=== PATIENT | female | born 2000 | race Caucasian/White ===

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

== ENCOUNTER 2022-09-21 20:30 | Emergency (ER) | payer SELFPAY ==
[~2022-09-21] VITALS: Ht 162.6 cm; Wt 127.0 kg
[2022-09-21 21:17] VITALS: BP 110/69
--- NOTE | 2022-09-21 21:23 | NUR ---
TO LOBBY FOLLOWING TRIAGE
--- NOTE | 2022-09-21 22:31 | NUR ---
PT W/C ASSISTED TO BED #4 FROM RADIOLOGY
[2022-09-21] MEDS ORDERED: ACETAMIN/CODEINE 120/12MG-5ML 5 ML UDC PO ONE (22:40)
[2022-09-21] MEDS ORDERED: predniSONE 20 MG TAB PO ONE (23:15)
[2022-09-22] MEDS ORDERED: PRED20TA5 PO (00:39)
[2022-09-22] MEDS ORDERED: ROBAC PO (00:39)
[2022-09-22 00:59] VITALS: BP 110/69
--- NOTE | 2022-09-22 01:00 | NUR ---
Patient discharged with v/s stable. Written and verbal after care instructions given and explained. Patient alert, oriented and verbalized understanding of instructions. Ambulatory with steady gait. All questions addressed prior to discharge. ID band removed. Patient advised to follow up with PMD. Rx of prednison and guaifenesi given. Patient educated on indication of medication including possible reaction and side effects. Opportunity to ask questions provided and answered.
== END 2022-09-22 01:00 | disposition home or self-care (01) ==
LOC: MED 20:30
DX: J20.9 Acute bronchitis, unspecified (principal); Z79.899 Other long term (current) drug therapy
CPT/HCPCS: 71045; 99283; J7512

== ENCOUNTER 2023-03-05 13:08 | Emergency (ER) | payer OTHER ==
[~2023-03-05] VITALS: Ht 162.6 cm; Wt 127.0 kg
[~2023-03-05 13:08] MED LIST: PRED20TA5 PO; ROBAC PO
[2023-03-05 13:12] VITALS: BP 94/68; PULSE 129; RESP 18; TEMP 98.4; O2SAT 97
[2023-03-05] MEDS ORDERED: KETOROLAC 30 MG/ML VIAL IM ONE (13:45)
[2023-03-05 15:34] LABS: FLU A ANTIGEN negative (NEGATIVE); FLU B ANTIGEN NEGATIVE (NEGATIVE)
[2023-03-05] MEDS ORDERED: IBUP-2809 PO (15:41)
[2023-03-05] MEDS ORDERED: ACET-10509 PO (15:41)
[2023-03-05 16:59] VITALS: BP 111/68; PULSE 89; RESP 18; TEMP 98.4; O2SAT 99
== END 2023-03-05 16:59 | disposition home or self-care (01) ==
LOC: MED 13:08
DX: B34.9 Viral infection, unspecified (principal); Z20.822 Contact with and (suspected) exposure to COVID-19; Z79.899 Other long term (current) drug therapy; Z79.1 Long term (current) use of non-steroidal anti-inflammatories (NSAID)
CPT/HCPCS: 36415; 71045; 81025; 85379; 87426; 87804; 93005; 96372; 99285; J1885

== ENCOUNTER 2023-07-07 05:55 | Emergency (ER) | payer OTHER ==
[~2023-07-07] VITALS: Ht 160 cm; Wt 140.2 kg
[~2023-07-07 05:55] MED LIST changes: +ACET-10509 PO; +IBUP-2809 PO
[2023-07-07 06:02] VITALS: BP 143/96; PULSE 124; RESP 25; TEMP 98.8; O2SAT 95
[2023-07-07 06:59] VITALS: PULSE 117; RESP 20; O2SAT 95
[2023-07-07] MEDS: ALBUTEROL SULFATE/IPRATROPIU 3 ML SOL IH ONE (06:59)
[2023-07-07] MEDS ORDERED: ALBU0.0912 IH (07:16)
[2023-07-07] MEDS ORDERED: PRED20TA5 PO (07:16)
[2023-07-07] MEDS ORDERED: BROM118S70 PO (07:16)
[2023-07-07 07:45] LABS: FLU A ANTIGEN negative (NEGATIVE); FLU B ANTIGEN negative (NEGATIVE)
[2023-07-07 08:05] VITALS: BP 118/73; PULSE 101; RESP 21; TEMP 98.9; O2SAT 95
== END 2023-07-07 08:05 | disposition home or self-care (01) ==
LOC: MED 05:55
DX: J06.9 Acute upper respiratory infection, unspecified (principal); Z20.822 Contact with and (suspected) exposure to COVID-19; Z79.899 Other long term (current) drug therapy
CPT/HCPCS: 71045; 87426; 87804; 94640; 99284; Q0092

== ENCOUNTER 2024-01-14 18:18 | Emergency (ER) | payer OTHER ==
[~2024-01-14] VITALS: Ht 162.6 cm; Wt 139.5 kg
[~2024-01-14 18:18] MED LIST changes: -ACET-10509 PO; +ACET500T99 PO; +ALBU0.0912 IH; +BROM118S70 PO
[2024-01-14 18:25] VITALS: BP 128/63; PULSE 130; RESP 18; TEMP 97.7; O2SAT 98
[2024-01-14 18:57] VITALS: PULSE 117; RESP 22; O2SAT 98
[2024-01-14] MEDS: NACL 0.9% 1,000 ML IV ONE (18:58)
[2024-01-14] MEDS: LEVALBUTEROL 1.25 MG/0.5 ML NEBU INH ONE (19:03)
[2024-01-14 19:05] LABS: BASOPHILS # (AUTO) 0.1 K/uL (0.00-0.22); EOSINOPHILS # (AUTO) 0.5 K/uL (0-0.4); EOSINOPHILS % (AUTO) 6.4 % (0.0-4.0); HEMATOCRIT 39.8 % (36-48); LYMPHOCYTES # (AUTO) 1.5 K/uL (2.5-16.5); LYMPHOCYTES % (AUTO) 18.8 % (20.5-51.1); MEAN CORPUSCULAR HEMOGLOBIN 26 pg (27-31); MEAN CORPUSCULAR HGB CONC 33 g/dL (33-37); MEAN CORPUSCULAR VOLUME 78.2 fL (80-94); MONOCYTES % (AUTO) 12.2 % (1.7-9.3); NEUTROPHILS # (AUTO) 5.1 K/uL (1.8-7.7); NEUTROPHILS % (AUTO) 61.6 % (42.2-75.2); PLATELET COUNT (AUTO) 280 K/uL (140-450); RED BLOOD CELL COUNT(AUTO) 5.09 MIL/uL (4.20-5.40); RED CELL DISTRIBUTION WIDTH 16.4 % (11.6-13.7); WHITE BLOOD COUNT (AUTO) 8.2 K/uL (4.8-10.8)
[2024-01-14 19:14] LABS: CALCIUM 8.5 mg/dL (8.5-10.1); CARBON DIOXIDE 27.6 mmol/L (21-32); CREATININE 0.9 mg/dL (0.6-1.3); POTASSIUM 3.6 mmol/L (3.5-5.1)
[2024-01-14 19:21] LABS: INR 1.02 (0.8-1.2); PARTIAL THROMBOPLASTIN TIME 27.2 secs (22-35.6); PROTHROMBIN TIME 10.7 secs (10.8-13.4)
[2024-01-14 19:30] LABS: ALANINE AMINOTRANSFERASE 35 U/L (12-78); ALBUMIN 3.5 g/dL (3.4-5.0); ALKALINE PHOSPHATASE 80 U/L (50-136); ASPARTATE AMINOTRANSFERASE 20 U/L (15-37); BILIRUBIN,DIRECT 0.1 mg/dL (0.0-0.3); THYROID STIMULATING HORMONE 1.05 uIU/mL (0.34-3.74); TOTAL BILIRUBIN 0.4 mg/dL (0.0-1.0); TOTAL PROTEIN, SERUM 7.7 g/dL (6.4-8.2)
[2024-01-14 19:57] LABS: FLU A ANTIGEN NEGATIVE (NEGATIVE); FLU B ANTIGEN NEGATIVE (NEGATIVE)
[2024-01-14] MEDS ORDERED: BENZ200C4 PO (20:06)
[2024-01-14] MEDS ORDERED: ALBU0.0912 IH (20:06)
[2024-01-14 20:42] VITALS: BP 118/63; PULSE 102; RESP 22; TEMP 98.8; O2SAT 98
== END 2024-01-14 20:42 | disposition home or self-care (01) ==
LOC: MED 18:18
DX: U07.1 COVID-19 (principal); R00.0 Tachycardia, unspecified; Z79.899 Other long term (current) drug therapy
CPT/HCPCS: 36415; 71045; 80048; 80076; 81025; 83880; 84443; 84484; 85025; 85379; 85610; 85730; 87426; 87804; 93005; 94640; 96360; 99285; J7030; J7612